=== PATIENT | female | born 1955 | race Two or more races ===

== ENCOUNTER 2017-07-18 11:40 | Emergency (ER) | payer OTHER ==
[2017-07-18 11:56] VITALS: BP 120/88; PULSE 90; TEMP 98.4; BMI 29.8
--- NOTE | 2017-07-18 12:09 | PDOC ---
History of Present Illness - General Chief Complaint: Injury Stated Complaint: FELL Time Seen by Provider: 07/18/17 12:09 History Source: Patient Exam Limitations: No Limitations - History of Present Illness Initial Comments: 07/18/17 13:09 Is a 62-year-old female with a history of hypertension, hyperlipidemia who presents emergency department status post fall from standing height with injury to her left ankle. Patient states that possibly one year ago she had a bunion surgery. Since then she's noticed intermittent numbness and involuntary movements of the left foot. Patient noted numbness of the left foot today, attempted to stand. When she did not her foot went out from beneath her. She fell onto both knees. No head trauma, no loss of consciousness. She was assisted to standing. States that she had pain with walking. Currently she reports ankle pain that is 7/10. Sharp, located in the lateral malleolus. Patient refused Motrin PMH: Hypertension, hyperlipidemia, anxiety PSH: Bunion surgery, neuroma removal, C-sections, breast reduction Medication: Zocor, lisinopril ALLERGIES: No known GENERAL/CONSTITUTIONAL: No: fever, chills, weakness, loss of appetite. HEAD, EYES, EARS, NOSE AND THROAT: No: change in vision, ear pain, discharge, sore throat, throat swelling. CARDIOVASCULAR: No: chest pain, lightheadedness, palpitations, syncope RESPIRATORY: No: cough, shortness of breath, wheezing, hemoptysis, stridor. GASTROINTESTINAL: No: nausea, vomiting, diarrhea, abdominal cramping, rectal bleeding, constipation. GENITOURINARY: No: dysuria, hematuria, frequency, urgency, flank pain. MUSCULOSKELETAL: Yes: ankle pain, knee pain No: back pain, neck pain, muscle swelling or pain SKIN: No: lesions, pallor, rash or easy bruising. NEUROLOGIC: No: headache, vertigo, paresthesias, weakness ENDOCRINE: No: unexplained weight gain or loss HEMATOLOGIC/LYMPHATIC: No: anemia, easy bleeding, swelling nodes. GENERAL: The patient is in no acute distress. HEAD: Normal with no signs of trauma. EYES: PERRLA, EOMI, sclera anicteric, conjunctiva clear. ENT: Ears normal, nares patent, oropharynx clear without exudates. Moist mucous membranes. NECK: Normal range of motion, supple LUNGS: Breath sounds equal, clear to auscultation bilaterally. No wheezes, and no crackles. HEART:Regular rate and rhythm, normal S1 and S2 without murmur, rub or gallop. ABDOMEN: Soft, nontender, normoactive bowel sounds. No guarding, no rebound. No masses palpable. EXTREMITIES: Normal range of motion at both knees. Left lateral malleolus tender to palpation, swollen. 2+ dorsalis pedis, 2+ posterior tibialis Sensation intact Cap refill <2sec Normal range of motion, no edema. No clubbing or cyanosis. No erythema, or tenderness. NEUROLOGICAL: Cranial nerves II through XII grossly intact. Normal speech. No focal neurological deficits. MUSCULOSKELETAL: See above SKIN: Warm, Dry, normal turgor, no rashes or lesions noted. Past History - Past Medical History Allergies/Adverse Reactions: Allergies Allergy/AdvReac Type Severity Reaction Status Date / Time No Known Allergies Allergy Verified 06/02/13 10:07 Home Medications: Ambulatory Orders Simvastatin [Zocor] 10 mg PO HS 06/02/13 COPD: No HTN: Yes Hypercholesterolemia: Yes - Suicide/Smoking/Psychosocial Hx Smoking History: Former smoker Have you smoked in the past 12 months: No Number of Cigarettes Smoked Daily: 0 Information on smoking cessation initiated: No Hx Alcohol Use: No Drug/Substance Use Hx: No Substance Use Type: None *Physical Exam - Vital Signs Last Vital Signs Temp Pulse Resp BP Pulse Ox 98.4 F 90 15 120/88 98 07/18/17 11:49 07/18/17 11:49 07/18/17 11:49 07/18/17 11:49 07/18/17 11:49 Medical Decision Making - Medical Decision Making 07/18/17 13:13 62-year-old female status post mechanical fall from standing height Differential diagnosis includes but is not limited to fracture, dislocation, musculoskeletal pain Will do: Xray knees and ankles Pt refused motrin Anticipate discharge 07/18/17 14:51 X-rays are negative for fracture, dislocation of the ankle, knees bilaterally. Will discharged home. Patient can apply Ramo wrap as discomfort. Follow-up with primary care physician. Return to the ER for any other concerns or complaints Impression: Musculoskeletal pain, and initial presentation *DC/Admit/Observation/Transfer Diagnosis at time of Disposition: Ankle injury Qualifiers: Encounter type: initial encounter Laterality: left Qualified Code(s): S99.912A - Unspecified injury of left ankle, initial encounter - Discharge Dispostion Disposition: HOME Condition at time of disposition: Stable Admit: No - Referrals Referrals: Luke Vail MD [Primary Care Provider] - Kit Helm MD [Staff Physician] - - Patient Instructions Printed Discharge Instructions: DI for Ankle Sprain Additional Instructions: Today you were seen for ankle pain and the X-ray demonstrated no signs of fracture (broken bone), for that reason it is more likely a sprain based on your symptoms and the appearance and exam findings of your ankle. Please be sure to rest, ice and elevate it and to avoid bearing weight until feeling better. Please take motrin for pain You should not participate in any sports/strenuous physical activity for at least 1 week or until you are feeling better. Follow up with your primary cares office, or the referral weve provided you within 24 hours to inform them of todays visit and to see if they would like to/ need to see you. If you develop any new or worsening symptoms, or any fevers that cant be controlled with Tylenol or Motrin go directly to the emergency room. - Post Discharge Activity Forms/Work/School Notes: Back to Work
== END 2017-07-18 15:35 | disposition home or self-care (01) ==
LOC: FER 11:40
DX: S99.912A Unspecified injury of left ankle, initial encounter (principal); X58.XXXA Exposure to other specified factors, initial encounter; Y93.89 Activity, other specified; Y92.9 Unspecified place or not applicable
CPT/HCPCS: 73562-TC-LT-FY; 73562-TC-RT-FY; 73610-TC-LT-FY; 73630-TC-LT; 99281-25